=== PATIENT | female | born 1975 | race Hispanic/Latino ===

== ENCOUNTER 2018-03-26 10:13 | Inpatient (IN) | payer OTHER ==
[~2018-03-26] VITALS: Ht 172.7 cm; Wt 81.6 kg
[2018-03-26] MEDS ORDERED: MORPHINE SULFATE INJ 4 MG/ML INJ IV STA (10:46)
[2018-03-26] MEDS ORDERED: ONDANSETRON HCL INJ 2 MG/ML VIAL IV STA (10:46)
[2018-03-26] MEDS ORDERED: IBUPROFEN 200 MG TAB PO STA (10:46)
[2018-03-26] MEDS ORDERED: SODIUM CHLORIDE 0.9% 1000ML 1,000 ML IV STA ×2 (10:46→11:56)
[2018-03-26 10:57] LABS: BASOPHILS % 0.6 % (0.0-1.0); EOSINOPHILS # (AUTO) 0.1 (0.0-0.4); EOSINOPHILS % 2.3 % (0.0-6.0); HEMATOCRIT 34.3 % (34.2-44.1); HEMOGLOBIN 11.2 g/dL (12.0-16.0); LYMPHOCYTES # (AUTO) 0.9 (1.0-3.2); LYMPHOCYTES % 26.5 % (18.0-39.1); MEAN CORPUSCULAR HGB CONC 32.7 g/dL (31-35); MEAN CORPUSCULAR VOLUME 88.9 fL (81-99); MONOCYTES # (AUTO) 0.4 (0.2-0.8); MONOCYTES % 10.2 % (4.4-11.3); NEUTROPHILS # (AUTO) 2.1 (2.1-6.9); NEUTROPHILS % 60.1 % (38.7-80.0); PLATELET COUNT 168 x10e3/uL (140-360); RED BLOOD COUNT 3.86 x10e6/uL (3.6-5.1); RED CELL DISTRIBUTION WIDTH 13.4 % (11.7-14.4)
[2018-03-26] MEDS ORDERED: IBUPROFEN 600 MG TAB PO NR (11:00)
[2018-03-26] MEDS ORDERED: ACETAMINOPHEN 1000 MG/100 ML IV ONE (11:15)
[2018-03-26 11:21] LABS: ALANINE AMINOTRANSFERASE 23 IU/L (0-55); ALBUMIN 3.7 g/dL (3.5-5.0); ALBUMIN/GLOBULIN RATIO 1.3 (0.8-2.0); ALKALINE PHOSPHATASE 118 IU/L (40-150); ANION GAP 13.8 mmol/L (8-16); BLOOD UREA NITROGEN 11 mg/dL (7-26); BUN/CREATININE RATIO 11 (6-25); CALCIUM 8.4 mg/dL (8.4-10.2); CARBON DIOXIDE 23 mmol/L (22-29); CHLORIDE 105 mmol/L (98-107); CREATININE, SERUM 0.96 mg/dL (0.57-1.11); EST GLOMERULAR FILTRATION RATE > 60 ML/MIN (60-); GLUCOSE 99 mg/dL (74-118); LIPASE 51 U/L (8-78); POTASSIUM 3.8 mmol/L (3.5-5.1); SODIUM 138 mmol/L (136-145)
[2018-03-26] MEDS ORDERED: HYDROMORPHONE 1MG/1ML INJ IV STA (11:56)
[2018-03-26 12:04] LABS: CLARITY,URINE CLEAR (CLEAR); COLOR,URINE YELLOW (YELLOW); LEUKOCYTE ESTERASE ,URINE NEGATIVE (NEGATIVE)
[2018-03-26 12:05] LABS: BILIRUBIN,URINE NEGATIVE (NEGATIVE); KETONES,URINE NEGATIVE (NEGATIVE); NITRITE,URINE NEGATIVE (NEGATIVE); PROTEIN,URINE DIPSTICK NEGATIVE (NEGATIVE); URINE UROBILINOGEN 1 mg/dL (0.2 - 1)
[2018-03-26] MEDS ORDERED: HYDROMORPHONE 2MG/ML 2 MG/ML ML IV NR (12:15)
[2018-03-26 12:32] LABS: EPITHELIAL CELLS,URINE RARE /LPF
[2018-03-26 12:33] LABS: BACTERIA,URINE RARE /HPF
--- NOTE | 2018-03-26 12:53 | Diagnostic Imaging Report ---
EXAMINATION: CT of the abdomen and pelvis without contrast. TECHNIQUE: Spiral CT images of the abdomen and pelvis were performed from the lung bases to the lesser trochanters. No intravenous contrast was given per renal stone protocol. Coronal and sagittal reformatted images were obtained. COMPARISON: None. CLINICAL HISTORY:Right flank pain, nausea, vomiting, fever DISCUSSION: ABSENCE OF INTRAVENOUS CONTRAST DECREASES SENSITIVITY FOR DETECTION OF FOCAL LESIONS AND VASCULAR PATHOLOGY. ABDOMEN/PELVIS: LOWER THORAX: Trace subsegmental atelectasis in the dependent lower lobes. HEPATOBILIARY:No focal hepatic lesion or intrahepatic biliary ductal dilatation. Gallbladder has been removed. SPLEEN: No splenomegaly. PANCREAS: No focal masses or ductal dilatation. ADRENALS: No adrenal nodules. KIDNEYS/URETERS: No hydronephrosis or gross renal mass lesion. Punctate calcification along the right posterior wall of the urinary bladder seen on series 3 image 163 may represent a right ureterovesical junction calculus. Multiple additional pelvic phleboliths. No perinephric inflammation. PELVIC ORGANS/BLADDER: The urinary bladder is otherwise unremarkable. No adnexal mass. PERITONEUM/RETROPERITONEUM: No ascites or codie pneumoperitoneum. LYMPH NODES: No pelvic sidewall, retroperitoneal, or mesenteric lymphadenopathy. VESSELS: Limited evaluation without intravenous contrast. The abdominal aorta is nonaneurysmal. GI TRACT: The large bowel shows no evidence of distention or wall thickening. Gas and fecal material are noted throughout. The appendix is not definitively identified. However, no right lower quadrant inflammatory change. Postsurgical changes of the stomach and proximal small bowel without dilatation to suggest obstruction. BONES AND SOFT TISSUES: No osseous destructive lesions. Small focus of subcutaneous gas along the right flank may relate to insulin or other subcutaneous medication administration. Post surgical changes of the anterior abdominal wall. IMPRESSION: Questionable punctate right ureterovesical junction calculus without hydroureteronephrosis or perinephric inflammation. Signed by: Dr. Bird Rajput M.D. on 03/26/2018 12:50 PM
[2018-03-26] MEDS ORDERED: SYMBICORT 16010.2 GM INH (13:00)
[2018-03-26] MEDS ORDERED: LEXAPRO10 MG PO (13:00)
[2018-03-26] MEDS ORDERED: LORAZEPAM0.5 MG PO (13:00)
[2018-03-26] MEDS ORDERED: RESTORIL15 MG PO (13:00)
[2018-03-26] MEDS ORDERED: PANTOPRAZOLE SO40 MG PO (13:00)
[2018-03-26] MEDS ORDERED: LEVOTHYROXINE50 MCG PO (13:00)
[2018-03-26] MEDS ORDERED: ULTRAM50 MG PO (13:00)
[2018-03-26] MEDS ORDERED: VENTOLIN HFA18 GM INH (13:00)
[2018-03-26] MEDS ORDERED: VITAMIN A10000 UNIT PO (13:04)
[2018-03-26] MEDS ORDERED: ICAPS TABLET1 EACH PO (13:04)
[2018-03-26] MEDS ORDERED: PROBIOTIC DIGE1 EACH PO (13:04)
[2018-03-26] MEDS ORDERED: ADEK PO (13:04)
[2018-03-26] MEDS ORDERED: VITAMIN D1000 UNI1 PO (13:04)
[2018-03-26] MEDS ORDERED: MIDODRINE HCL2.5 MG PO ×2 (13:20)
[2018-03-26] MEDS ORDERED: HYDROMORPHONE 2MG/ML 2 MG/ML ML IV ONE (15:00)
[2018-03-26] MEDS ORDERED: MORPHINE SULFATE 2 MG/ML SYR IV PRN (15:00)
[2018-03-26] MEDS ORDERED: CEFTRIAXONE SOD 1 GM VIAL IV SCH (15:00)
[2018-03-26] MEDS ORDERED: MORPHINE SULFATE INJ 4 MG/ML INJ IV PRN (15:15)
[2018-03-26] MEDS ORDERED: CEFTRIAXONE SOD 1 GM/NS 50 ML 50 ML IV SCH (15:15)
[2018-03-26] MEDS: SODIUM CHLORIDE 0.9% 1000ML 1,000 ML IV SCH ×2 (15:30→16:04)
[2018-03-26 16:00] VITALS: BP 95/54
[2018-03-26] MEDS ORDERED: IBUPROFEN 600 MG TAB ONE (16:01)
[2018-03-26] MEDS ORDERED: IBUPROFEN 600 MG TAB PO STA (16:09)
--- NOTE | 2018-03-26 16:13 | NUR ---
2ND ATTEMPT TO CALL REPORT. NURSE NOT AVAILABLE
--- NOTE | 2018-03-26 17:59 | History and Physical ---
HISTORY OF PRESENT ILLNESS: Fl[id number][id number]-old female with past medical history positive for gastric bypass, history of hypoglycemia, history of kidney stones. Patient pseudoseizure. Patient came to the emergency room complaining of severe right flank pain, fever, chills, burning urination for 3 days at least and he was diagnosed with kidney stone, possible pyelonephritis, possible sepsis. REVIEW OF SYSTEMS CARDIOVASCULAR: No chest pain or palpitations. RESPIRATORY: No shortness of breath. No cough. GASTROINTESTINAL: She has nausea and vomiting, abdominal pain with no diarrhea. GENITOURINARY: She has frequency and dysuria. ALLERGIES: CIPROFLOXACIN, NITROFURANTOIN. SOCIAL HISTORY: She does not smoke. She does not drink. PAST MEDICAL HISTORY: Positive for history of kidney stones, history of pseudoseizures, history of hypoglycemia. PAST SURGICAL HISTORY: History of gastric bypass. PHYSICAL EXAMINATION HEART: Shows regular rhythm. Normal S1, S2 sounds. LUNGS: Clear bilaterally. ABDOMEN: Soft. He has right flank pain. No distention. No visceromegaly. EXTREMITIES: Show no evidence of cyanosis, edema or trauma. LABORATORY DATA: On the blood work, we have BMP, sodium 138, potassium 3.8, chloride 105, CO2 23, BUN 11, creatinine 0.86, glucose 99. CBC: White blood count 3.43, hemoglobin 11.2, hematocrit 34.3, platelet count 160,000. AST 25, ALT 23, total bilirubin 0.7, alkaline phosphatase 118. CT of the abdomen showed right kidney stone with hydronephrosis. FINAL IMPRESSIONS 1. Right pyelonephritis. 2. Sepsis. 3. Right kidney stone. 4. Sepsis secondary to urinary tract infection. 5. status post gastric bypass. 6. History of hypoglycemia secondary to gastric bypass. PLAN OF TREATMENT: Continue IV fluids 125 mL an hour. Ceftriaxone 2 g IV once a day. Zofran 4 mg IV q.4 hours as needed. Going to put her on Dilaudid 2 mg IV every 3 hours as needed for severe pain. Consult Dr. Chris Vick for urology. Job#: [id number] ELVA
[2018-03-26] MEDS: HYDROMORPHONE 2MG/ML 2 MG/ML ML IV PRN (19:35)
--- NOTE | 2018-03-26 19:35 | NUR ---
PT IS RESTING IN BED. NO RESPIRATORY DISTRESS NOTED. BED IN THE LOWEST POSITION, LOCKED, AND CALL LIGHT WITHIN REACH. WILL CONTINUE TO MONITOR.
[2018-03-26] MEDS: ONDANSETRON HCL INJ 2 MG/ML VIAL IV PRN (19:36)
[2018-03-26 19:49] VITALS: BP 95/54
[2018-03-26 19:50] VITALS: BP 95/54
--- NOTE | 2018-03-26 19:52 | NUR ---
PER DR THOMAS TAKE PT OFF NPO AND RESUME REGULAR DIET. WILL CONTINUE TO MONITOR.
[2018-03-26 20:00] VITALS: BP 85/49
[2018-03-26 20:25] VITALS: BP 107/57
[2018-03-27] VITALS (10 sets, daily range): BP systolic 87–116; BP diastolic 49–58
[2018-03-27] MEDS: SODIUM CHLORIDE 0.9% 1000ML 1,000 ML IV SCH ×3 (00:49→14:52)
[2018-03-27] MEDS: ONDANSETRON HCL INJ 2 MG/ML VIAL IV PRN ×5 (00:52→21:40)
[2018-03-27] MEDS: HYDROMORPHONE 2MG/ML 2 MG/ML ML IV PRN ×5 (00:52→21:40)
[2018-03-27] MEDS: ACETAMINOPHEN 325 MG TAB PO PRN (08:05)
--- NOTE | 2018-03-27 10:33 | NUR ---
CASE MANAGEMENT INITIAL ASSESSMENT Filling Machine Set Up Mechanic to bedside to discuss plan of care with patient/family. CM/SW role and care transitions discussed. Anticipated discharge plan discussed along with duration of care. CM/SW discussed patients right to make decisions in care. CM/SW work hours given. Patient lives: IN HOME WITH FAMILY 2 STORY Admit/Transfer: VIA ED FROM HOME POA/Emergency contact: GERALDINE SHAFFER [phone](CURRENTLY IN CT), MOTHER IS AMARI ALFARO [phone] AND SON IS MANDI [phone] Current/Previous Home Health: NONE PCP/Follow-up Care: BRINDA OR AMAYA Current/Previous DME: NONE Other Services: NONE Employment Status: [employer] AT [employer] Areas of Concerns: NONE Referral Needs: NONE Education Needs: NONE IMM/DUNLAP given and signed (if applicable): NA Goal for discharge: RETURN HOME INDEPENDENTLY CM/SW left business card at the bedside with contact information. Name and number was also written on the patients whiteboard. Patient verbalized understanding of discussion. CM will follow-up with ongoing discharge and transition of care needs.
--- NOTE | 2018-03-27 11:43 | Progress Note ---
DATE: March 27, 2018 INTERNAL MEDICINE PROGRESS NOTE SUBJECTIVE: She is still having burning urination, low-grade fever, complaining of right flank pain. PHYSICAL EXAMINATION VITAL SIGNS: Blood pressure 87/49. Temperature 100 degrees. Heart rate 99 per minute, respiratory rate 16 per minute, oxygen saturation 96%. HEART: Regular rhythm, normal S1 and S2 sounds. LUNGS: Clear bilaterally. ABDOMEN: Soft. EXTREMITIES: No evidence of cyanosis, edema or trauma. LABS: On the BMP, sodium 138, potassium 3.8, chloride 105, CO2 23. BUN 11, creatinine 0.86. Glucose 99. On the CBC, white blood count 3.43; hemoglobin 8.2; hematocrit 34.3; platelet count 168,000. AST 25, ALT 23, total bilirubin 0.7, alkaline phosphatase 118. FINAL IMPRESSION 1. Sepsis. 2. Pyelonephritis. 3. Right kidney stone. 4. Vomiting. 5. Hypotension. PLAN OF TREATMENT: Continue IV fluids. We are going to increase to 150 mL an hour. Zofran 4 mg IV q.4 h., Tylenol 325 mg q.4 h. as needed, Dilaudid 2 mg IV q.4 h. as needed. Continue Rocephin 2 grams IV once a day. I am going to start her on midodrine 5 mg at bedtime that she was getting before. I am going to start her on Pyridium 200 mg [address] Chris Vick is the urologist on the case. Dr. Sun of infectious disease is also on the case. Job#: [id number]
[2018-03-27] MEDS ORDERED: MIDODRINE 2.5 MG TAB PO SCH (12:00)
[2018-03-27] MEDS: MIDODRINE HCL 5 MG TABLET PO SCH ×2 (12:25→17:11)
[2018-03-27] MEDS: MEROPENEM 500MG/ NS 50ML 50 ML IV SCH ×2 (12:25→17:11)
--- NOTE | 2018-03-27 13:04 | NUR ---
patient transferred to floor. report called. all personal belongings with patient.vitals stable.
--- NOTE | 2018-03-27 13:17 | NUR ---
PATIENT RECEIVED ON THE UNIT PER WHEELCHAIR AT 1309 FROM OBS ROOM 179- PATIENT IS IN STABLE CONDITION WITH NO S/S OF RESPIRATORY DISTRESS. PATIENT RECENTLY RECEIVED PAIN MEDICATION AND ZOFRAN PRIOR TO ARRIVING TO THE UNIT. PATIENT STATED HER PAIN LEVEL IS AN 8/10 AT THIS POINT. IV FLUIDS INFUSING. NON-PITTING EDEMA NOTED. MOTHER PRESENT IN ROOM. CALL LIGHT IS WITHIN REACH, INSTRUCTED TO CALL FOR ASSISTANCE NEEDED.
--- NOTE | 2018-03-27 13:34 | Consultation ---
DATE OF CONSULTATION: March 27, 2018 INFECTIOUS DISEASE CONSULTATION This is a patient of Dr. Ball located at [facility] in [place], [place]. Ms. Brock is a well known female who is well known to infectious disease. She is a nurse at [employer]. She is admitted to [facility] with complaint of a few days of high fever to 102 to 103 with severe right flank pain for 2 to 3 days. Pain and fever have progressively gotten worse. The patient has a history of renal stones. Now admitted to [facility] for evaluation and treatment. PAST MEDICAL HISTORY: She has a history of gastric bypass, history of hypoglycemia, renal stones, questionable pseudoseizures. ALLERGIES: ALLERGIC TO CIPRO AND NITROFURANTOIN. LABORATORY STUDIES: White count 3.43, platelets 168, hemoglobin 11.2. Sodium 138, potassium 3.8, chloride 105, CO2 23, BUN 11, creatinine 0.96, AST 25, ALT 23, lipase 51, lactic acid 6.5 which is within normal limits. MICROBIOLOGY: Urine culture and blood culture pending. RADIOLOGY STUDIES: Had a CT of the abdomen and pelvis. Final impression suggested there is a questionable punctate right ureterovesical junction calculus without hydroureteronephrosis or perinephric inflammation. MEDICATIONS: List has been reviewed. As far as infectious disease point of view, the patient is on Rocephin. REVIEW OF SYSTEMS: Complains of fever, chills, pain, weak, nausea and vomiting. PHYSICAL EXAMINATION GENERAL: She is alert and oriented, weak, ill-looking, in bed. VITALS: Temperature max was 101.3 on admission. Currently temperature is 100 Fahrenheit. Pulse 99, respirations 16, blood pressure 87/49. CVS: S1 and S2. CHEST: Equal expansion and clear to auscultation. No acute distress. ABDOMEN: Soft, obese, nontender. No distention. Bowel sounds positive. The patient is very tender in the right flank area. HEENT: Moist. No pallor. No JVD. EXTREMITIES: Moves all extremities. Some edema. ASSESSMENT AND PLAN: Concern for 43-year-old female with sepsis on admission. Blood culture and urine culture pending. The patient has a right renal stone by radiologic studies. 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 Concern for colonization. We will change the antibiotic to meropenem and wait for the urine culture and blood culture to come back. Further management of the antibiotics is based on the daily findings, laboratory and physical examination. I want to thank you for this kind consult. The case was discussed with Dr. Sun in detail. Dictated by NANDO Vinson Job#: [id number]
[2018-03-27] MEDS: PHENAZOPYRIDINE HCL 100 MG TAB PO SCH ×2 (13:55→21:40)
--- NOTE | 2018-03-27 19:30 | NUR ---
patient recieved awake, alert, lying quietly in bed. vss. no c/o pain noted. patient continues to c/o nausea but no vomiting noted at this time. ivf continue to infuse without difficulty. pm assessment complete. patient instructed to call for assistance when needed.
--- NOTE | 2018-03-27 21:40 | NUR ---
patient medicated with dilaudid 2 mg and zofran 4 mg ivp for c/o pain and nausea at this time.
[2018-03-27] MEDS ORDERED: PROMETHAZINE 12.5MG/ NACL 0.9% 12.5 MG/50 ML BAG IV PRN (22:15)
--- NOTE | 2018-03-27 22:38 | NUR ---
patient continues to c/o nausea. dr. stephens notified. patient medicated with phenergan 12.5 mg ivp for c/o nausea per orders.
[2018-03-28] VITALS (7 sets, daily range): BP systolic 102–118; BP diastolic 56–70
--- NOTE | 2018-03-28 | NUR ---
patient appears to be resting quietly. no further c/o nausea noted at this time.
[2018-03-28] MEDS: ACETAMINOPHEN 325 MG TAB PO PRN (01:04)
[2018-03-28] MEDS: SODIUM CHLORIDE 0.9% 1000ML 1,000 ML IV SCH ×2 (02:44→11:03)
--- NOTE | 2018-03-28 04:58 | NUR ---
patient awake, lying quietly in bed. ivf comtinue to infuse without difficulty.
[2018-03-28] MEDS: MEROPENEM 500MG/ NS 50ML 50 ML IV SCH ×5 (05:03→23:08)
[2018-03-28] MEDS: PHENAZOPYRIDINE HCL 100 MG TAB PO SCH ×3 (05:03→21:07)
--- NOTE | 2018-03-28 07:21 | NUR ---
PATIENT IS AWAKE AND IN STABLE CONDITION WITH NO S/S OF RESPIRATORY DISTRESS. PATIENT DENIES ANY PAIN. IV FLUIDS INFUSING. CALL LIGHT IS WITHIN REACH, INSTRUCTED TO CALL FOR ASSISTANCE NEEDED.
[2018-03-28] MEDS: MIDODRINE HCL 5 MG TABLET PO SCH ×3 (07:55→17:15)
[2018-03-28] MEDS: ONDANSETRON HCL INJ 2 MG/ML VIAL IV PRN (10:18)
--- NOTE | 2018-03-28 17:57 | NUR ---
DR. CORDERO ON THE UNIT- ASKED FOR LAB ORDER FOR TOMORROW. DR. CORDERO WILL SPEAK WITH PATIENT ON PLAN OF CARE.
--- NOTE | 2018-03-28 18:11 | NUR ---
CALL PLACED OUT TO DR. CRUZ REGARDING ANTIBIOTIC INFORMATION/MEDICATION FOR [facility]'S DISCHARGE. AWAITING CALLBACK.
--- NOTE | 2018-03-28 18:17 | NUR ---
RECEIVED CALL BACK FROM DR. CRUZ- PO ANTIBIOTIC INFORMATION FOR DISCHARGE RECEIVED PER DR. CORDERO'S REQUEST. DR. CORDERO INFORMED OF PO ANTIOBIOTIC (CIPRO 500MG PO BID FOR 2 WEEKS) FOR DISCHARGE AND PRESCRIPTION LEFT IN [facility]INDER FOR PATIENT'S DISCHARGE TOMORROW.
--- NOTE | 2018-03-28 19:02 | NUR ---
PATIENT IS IN STABLE CONDITION WITH NO S/S OF RESPIRATORY DISTRESS. NO PAIN VOICED. PATIENT'S IV IS SALINE LOCKED. CALL LIGHT IS WITHIN REACH, INSTRUCTED TO CALL FOR ASSISTANCE NEEDED. REPORT GIVEN TO ONCOMING NURSE.
--- NOTE | 2018-03-28 19:15 | NUR ---
patient recieved awake, alert, lying quietly in bed. vss. no c/o pain noted. pm assessment complete. patient instructed to call for assistance when needed.
--- NOTE | 2018-03-28 20:19 | Discharge Summary ---
HISTORY OF PRESENT ILLNESS: A 43-year-old female with past medical history positive for gastric bypass, kidney stones in the past, also a seizure disorder. The patient came here with fever and burning on urination. She was found to have UTI, started on IV antibiotics. CT of the abdomen showed questionable kidney stone. Dr. Chris Vick, urology on the case, did not agree with the CAT scan. He does not think that she had a kidney stone. Patient is afebrile. White blood count is normal. The patient was started on meropenem by Dr. Sun. She is going home tomorrow. Dr. Sun will write a prescription for antibiotic and I will write a prescription for the Pyridium. PHYSICAL EXAMINATION: Vital Signs: Blood pressure 111/59, temperature 97.1, heart rate 84 per minute, respiratory rate 16 per minute, oxygen saturation 98%. On the BMP, sodium 138, potassium 3.8, chloride 105, CO2 23, BUN 11, creatinine 0.96, glucose 99. CBC: White blood count 3.43, hemoglobin 11.2, hematocrit 34.3, platelet count is 168,000. AST 25, ALT 23, total bilirubin 0.2, alkaline phosphatase 118. FINAL IMPRESSION: 1. Urinary tract infection--pyelonephritis. 2. Possible sepsis. PLAN OF TREATMENT: Continue meropenem. Dr. Sun will decide tomorrow which antibiotic she can go home with. Blood cultures negative. Urine cultures negative. Continue Pyridium 100 mg p.o. q.8h. She is on midodrine 5 mg 3 times a day. Follow up with me in a couple of weeks. HERNÁN CORDERO MD Job#: [id number]
--- NOTE | 2018-03-29 | NUR ---
patient oob to bathroom with assistance. patient voids without difficulty. no c/o pain, nausea or vomiting noted.
[2018-03-29] MEDS: PHENAZOPYRIDINE HCL 100 MG TAB PO SCH (05:22)
[2018-03-29] MEDS: MEROPENEM 500MG/ NS 50ML 50 ML IV SCH (05:22)
[2018-03-29 05:56] LABS: HEMATOCRIT 29.5 % (34.2-44.1); HEMOGLOBIN 9.9 g/dL (12.0-16.0); MEAN CORPUSCULAR HEMOGLOBIN 29.8 pg (28-32); MEAN CORPUSCULAR HGB CONC 33.6 g/dL (31-35); MEAN CORPUSCULAR VOLUME 88.9 fL (81-99); PLATELET COUNT 109 x10e3/uL (140-360); RED BLOOD COUNT 3.32 x10e6/uL (3.6-5.1); RED CELL DISTRIBUTION WIDTH 13.6 % (11.7-14.4)
[2018-03-29] MEDS: MIDODRINE HCL 5 MG TABLET PO SCH (08:00)
--- NOTE | 2018-03-29 08:20 | NUR ---
PT DISCHARGED HOME,IV DCD WITHOUT RDNESS OR SWELLING ,PRESCRIPTIONS AND INSTRUCTIONS GIVEN COPY ON CHART,AMBULATED TO AUTO
[2018-03-29 09:17] LABS: BAND NEUTROPHILS % (MANUAL) 5 %; BLAST CELLS % MANUAL 2; EOSINOPHILS % (MANUAL) 4 % (0-7); LYMPHOCYTES % (MANUAL) 35 % (19-48); MONOCYTES % (MANUAL) 9 % (3.4-9.0); NEUTROPHILS % (MANUAL) 41 % (40-74)
[2018-03-29 09:18] LABS: HYPOCHROMASIA SLIGHT
[2018-03-29 09:19] LABS: ANISOCYTOSIS SLIGHT; PLATELET ESTIMATE ADEQUATE; RBC MORPHOLOGY COMMENT NORMAL
--- NOTE | 2018-03-31 20:12 | Discharge Summary ---
NO DICTATION (00:09) Job#: [id number] RTY
== END 2018-03-29 08:19 | disposition home or self-care (01) | DRG 872 ==
LOC: ER 10:13 → OBSVTOIN 14:56 → ERHOLD 14:56 → IMCU 16:54 → MED/SURG3 03-27 12:57
PROVIDERS: ADMIT Internal Medicine; ATTEND Internal Medicine
DX: A41.9 Sepsis, unspecified organism (principal); N10 Acute pyelonephritis; Z98.84 Bariatric surgery status
CPT/HCPCS: 36415; 74176; 80053; 81001; 82948; 83605; 83690; 85007; 85025; 85027; 87040; 87086; 99284; J0696; J2270; J2405; J2550; J7030